=== PATIENT | female | born 1960 | race Caucasian/White ===

== ENCOUNTER 2016-05-25 22:00 | Emergency (ER) | payer OTHER, MEDICAID ==
[~2016-05-25] VITALS: Ht 162.6 cm; Wt 104.3 kg
[2016-05-25 22:08] VITALS: BP_SYST 154
[2016-05-25 23:45] VITALS: BP_SYST 154
== END 2016-05-25 23:47 | disposition home or self-care (01) ==
LOC: SED 22:00
DX: M79.602 Pain in left arm (principal); M25.552 Pain in left hip; F03.90 Unspecified dementia, unspecified severity, without behavioral disturbance, psychotic disturbance, mood disturbance, and anxiety
CPT/HCPCS: 99283